=== PATIENT | male | born 1965 | race Caucasian/White ===

== ENCOUNTER 2017-06-18 14:27 | Emergency (ER) | payer SELFPAY ==
[2017-06-18] MEDS ORDERED: Albuterol/Ipratropium 3.0-0.5 MG/3 ML Neb Soln NEB ONE (14:50)
--- NOTE | 2017-06-18 14:55 | EDM.PDOC ---
ED HPI GENERAL MEDICAL PROBLEM - General Chief Complaint: Respiratory Problem Stated Complaint: CAN'T BREATH Time Seen by Provider: 06/18/17 14:45 Source of Information: Reports: Patient History Limitations: Reports: No Limitations - History of Present Illness INITIAL COMMENTS - FREE TEXT/NARRATIVE: HISTORY AND PHYSICAL: History of present illness: [Patient comes to the emergency room complaining of cough and chest congestion for the past 5 days. Today he started to feel more short of breath due to all this coughing. Complains of rib pain from all the coughing. He has not taken any [id number] medications for his symptoms. Denies fever and chills. His ribs feels sore from all the coughing but did not start off with these symptoms 5 days ago. No earaches or runny nose. No abdominal pain, nausea or vomiting. Denies abdominal pain nausea and vomiting. No constipation or diarrhea. He has not been around any other ill contacts that he is aware of. Smokes one pack of cigarettes per day. He is employed as a [employer].] Review of systems: As per history of present illness and below otherwise all systems reviewed and negative. Past medical history: As per history of present illness and as reviewed below otherwise noncontributory. Surgical history: As per history of present illness and as reviewed below otherwise noncontributory. Social history: No reported history of drug or alcohol abuse. Family history: As per history of present illness and as reviewed below otherwise noncontributory. Physical exam: HEENT: Atraumatic, normocephalic. Oral mucous membranes are pink and moist. Posterior oropharynx is mildly erythematous. No swelling or exudate. Neck is supple, no lymphadenopathy. TMs are clear, moderate cerumen present. Lungs: Clear to auscultation, breath sounds equal bilaterally. No wheezing crackles or rales are appreciated. Patient has a dry hacking cough nearly constantly while he is in the emergency room. Heart: S1S2, regular rate and rhythm. Abdomen: Soft, nondistended, nontender. Pelvis: Stable nontender. Genitourinary: Deferred. Rectal: Deferred. Extremities: Atraumatic. No cyanosis or edema to feet or lower legs. Neurovascular unremarkable. Neuro: Awake, alert, oriented. Motor and sensory unremarkable throughout. Exam nonfocal. Diagnostics: [Influenza swab] Therapeutics: [DuoNeb, Tessalon Perles] Impression: [Influenza B] Plan: [Rx written for Chucky Naqvi (#20) si po TID prn cough 0 RF's. Phenergan w/ codeine (#100mL) simL po qhs prn cough 0 RF's. Discussed with patient that he has tested positive for influenza B and that Tamiflu likely will not improve his symptoms at this point. Recommend he push fluids get plenty of rest , supportive measures. Strict return precautions are reviewed with the patient. Encouraged him to quit smoking and follow-up with his local PCP. He is in agreement with today's plan.] Definitive disposition and diagnosis as appropriate pending reevaluation and review of above. stomach/rib Pain Score (Numeric/FACES): 5 - Related Data Allergies Allergy/AdvReac Type Severity Reaction Status Date / Time No Known Allergies Allergy Verified 06/18/17 14:28 Home Meds: Home Meds . [No Known Home Meds] 06/18/17 [History] Past Medical History HEENT History: Reports: None Cardiovascular History: Reports: None Respiratory History: Reports: None Gastrointestinal History: Reports: None Genitourinary History: Reports: None Musculoskeletal History: Reports: None Neurological History: Reports: None Psychiatric History: Reports: None Endocrine/Metabolic History: Reports: None Hematologic History: Reports: None Immunologic History: Reports: None Oncologic (Cancer) History: Reports: None Dermatologic History: Reports: None - Infectious Disease History Infectious Disease History: Reports: Chicken Pox, Measles, Mumps - Past Surgical History Head Surgeries/Procedures: Reports: None HEENT Surgical History: Reports: None Cardiovascular Surgical History: Reports: None Respiratory Surgical History: Reports: None GI Surgical History: Reports: None Male Surgical History: Reports: None Neurological Surgical History: Reports: None Musculoskeletal Surgical History: Reports: None Oncologic Surgical History: Reports: None Dermatological Surgical History: Reports: None Social & Family History - Family History Family Medical History: Noncontributory - Tobacco Use Smoking Status *Q: Current Every Day Smoker Years of Tobacco use: 30 Packs/Tins Daily: 1 - Caffeine Use Caffeine Use: Reports: Tea - Recreational Drug Use Recreational Drug Use: No ED ROS GENERAL - Review of Systems Review Of Systems: ROS reveals no pertinent complaints other than HPI. ED EXAM, GENERAL - Physical Exam Exam: See Below Course - Vital Signs Last Recorded V/S: Last Vital Signs Temp 98.6 F 06/18/17 15:45 Pulse 93 06/18/17 15:45 Resp 18 06/18/17 15:45 BP 119/83 06/18/17 15:45 Pulse Ox 95 06/18/17 15:45 - Orders/Labs/Meds Orders: Active Orders 24 hr Category Date Time Status RT Aerosol Therapy [RC] ASDIRECTED Care 06/18/17 14:50 Active Meds: Medications Discontinued Medications Generic Name Dose Route Start Last Admin Trade Name Lacey PRN Reason Stop Dose Admin Albuterol/Ipratropium 3 ml 06/18/17 14:50 06/18/17 14:55 Duoneb 3.0-0.5 Mg/3 Ml NEB 06/18/17 14:51 3 ml ONETIME ONE Administration Benzonatate 200 mg 06/18/17 15:15 06/18/17 15:21 Tessalon Perles PO 06/18/17 15:16 200 mg ONETIME ONE Administration Benzonatate 100 mg 06/18/17 15:15 06/18/17 15:17 Tessalon Perles PO 06/18/17 15:16 Not Given ONETIME ONE Departure - Departure Time of Disposition: 15:35 Disposition: Home, Self-Care 01 Condition: Good Clinical Impression: Influenza - Discharge Information Instructions: Influenza, Adult, [id number] Referrals: PCP,None [Primary Care Provider] - Forms: ED Department Discharge Additional Instructions: The following information is given to patients seen in the emergency department who are being discharged to home. This information is to outline your options for follow-up care. We provide all patients seen in our emergency department with a follow-up referral. The need for follow-up, as well as the timing and circumstances, are variable depending upon the specifics of your emergency department visit. If you don't have a primary care physician on staff, we will provide you with a referral. We always advise you to contact your personal physician following an emergency department visit to inform them of the circumstance of the visit and for follow-up with them and/or the need for any referrals to a consulting specialist. The emergency department will also refer you to a specialist when appropriate. This referral assures that you have the opportunity for follow-up care with a specialist. All of these measure are taken in an effort to provide you with optimal care, which includes your follow-up. Under all circumstances we always encourage you to contact your private physician who remains a resource for coordinating your care. When calling for follow-up care, please make the office aware that this follow-up is from your recent emergency room visit. If for any reason you are refused follow-up, please contact the [facility] emergency department at and asked to speak to the emergency department charge nurse. [facility] [address] [place] [id number] Follow-up with a local primary care provider in the next 48-72 hours. Take medications as prescribed. Get Robitussin or Delsym cough syrup. These are available over the counter regular local pharmacy. Return to ER as needed as discussed. - My Orders Last 24 Hours: My Active Orders 06/18/17 14:50 RT Aerosol Therapy [RC] ASDIRECTED - Assessment/Plan Last 24 Hours: My Active Orders 06/18/17 14:50 RT Aerosol Therapy [RC] ASDIRECTED
[2017-06-18] MEDS ORDERED: Benzonatate 100 MG Cap PO ONE ×2 (15:15)
== END 2017-06-18 15:50 | disposition home or self-care (01) ==
LOC: MW.ED 14:27
DX: J10.1 Influenza due to other identified influenza virus with other respiratory manifestations (principal); F17.210 Nicotine dependence, cigarettes, uncomplicated
CPT/HCPCS: 87804; 94640; 99283; A9270